=== PATIENT | female | born 1995 | race Caucasian/White ===

== ENCOUNTER 2019-08-30 23:39 | Emergency (ER) | payer OTHER ==
[2019-08-31 00:45] VITALS: BP 112/66; PULSE 78; TEMP 98.1; BMI 43.4
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
[2019-08-31] MEDS ORDERED: KETOROLAC TROMETHAMINE 30 MG/1 ML VIAL IM ONE (02:53)
[2019-08-31] MEDS ORDERED: KETOROLAC TROMETHAMINE 30 MG/1 ML VIAL ONE (03:01)
== END 2019-08-31 03:34 | disposition home or self-care (01) ==
LOC: JER 23:39
PROC: 3E0233Z Introduction of Anti-inflammatory into Muscle, Percutaneous Approach (ICD-10-PCS; principal; 2019-08-30)
DX: M54.5 Low back pain (principal); M54.2 Cervicalgia; V44.5XXA Car driver injured in collision with heavy transport vehicle or bus in traffic accident, initial encounter; Y92.414 Local residential or business street as the place of occurrence of the external cause; Y93.89 Activity, other specified; Y99.8 Other external cause status
CPT/HCPCS: 72050-TC-FY; 84703; 99282-25

== ENCOUNTER 2019-10-07 17:18 | Emergency (ER) | payer OTHER ==
[2019-10-07 17:26] VITALS: BMI 44.7
--- NOTE | 2019-10-07 20:40 | PDOC ---
History of Present Illness - General Chief Complaint: Cold Symptoms Stated Complaint: FLU SYMPTOMS Time Seen by Provider: 10/07/19 20:40 History Source: Patient - History of Present Illness Initial Comments: 10/07/19 20:49 Chief complaint: Fever and cough Patient 24-year-old healthy female with 3 days of fever and cough, last took Tylenol at 10 AM. GENERAL/CONSTITUTIONAL: No fever, weakness. dizziness HEAD, EYES, EARS, NOSE AND THROAT: No change in vision. No ear pain or discharge. No sore throat. CARDIOVASCULAR: No chest pain RESPIRATORY: No shortness of breath, + cough GASTROINTESTINAL: No pain, nausea, vomiting, diarrhea or constipation GENITOURINARY: No dysuria MUSCULOSKELETAL: No neck or back pain SKIN: No rash NEUROLOGIC: No headache, vertigo, loss of consciousness, or loss of sensation. GENERAL: The patient is awake, alert, and fully oriented, in no acute distress. HEAD: Normal with no signs of trauma. EYES: Pupils equal, round and reactive to light, sclera anicteric, conjunctiva clear. ENT: pharynx: no erythema, no exudate, uvula midline NECK: supple CHEST: Inspiration clear, wheezing with expiration, no signs of respiratory distress, nontender, rr ABD: soft, nontender BACK: no tenderness or signs of injury EXTREMITIES: Normal range of motion, no edema. NEUROLOGICAL: Normal speech, normal gait. SKIN: Warm, Dry Past History - Past Medical History Allergies/Adverse Reactions: Allergies Allergy/AdvReac Type Severity Reaction Status Date / Time No Known Allergies Allergy Verified 10/07/19 17:26 Home Medications: Ambulatory Orders Albuterol Sulfate Inhaler - [Ventolin HFA Inhaler -] 2 inh PO Q4H #1 inh Oseltamivir Phosphate [Tamiflu] 75 mg PO BID #10 capsule 10/07/19 predniSONE [Deltasone -] 40 mg PO DAILY #8 tablet 10/07/19 COPD: No - Psycho Social/Smoking Cessation Hx Smoking History: Never smoked *Physical Exam - Vital Signs Last Vital Signs Temp Pulse Resp BP Pulse Ox 102.7 F H 80 18 122/86 98 10/07/19 17:23 10/07/19 17:23 10/07/19 17:23 10/07/19 17:23 10/07/19 17:23 Medical Decision Making - Medical Decision Making 10/07/19 20:50 Healthy 24-year-old female with flu symptoms for 3 days, now with wheezing, no signs of respiratory distress. Patient will get Tylenol, flu swab DuoNeb and add in zone. Patient is not hypoxic. 10/07/19 22:08 Patient's wheezing has improved, no respiratory distress, patient's results are positive for flu A. Will sent home with Tamiflu, albuterol and prednisone. Patient will return if getting worse instead of better. Discussed issues, findings, results, applicable medications and treatments and follow-up. All these were understood and all questions were answered Discharge - Discharge Information Problems reviewed: Yes Clinical Impression/Diagnosis: Influenza A Condition: Stable Disposition: HOME - Admission No - Additional Discharge Information Prescriptions: Albuterol Sulfate Inhaler - [Ventolin HFA Inhaler -] 2 inh PO Q4H #1 inh Oseltamivir Phosphate [Tamiflu] 75 mg PO BID #10 capsule predniSONE [Deltasone -] 40 mg PO DAILY #8 tablet - Follow up/Referral - Patient Discharge Instructions Patient Printed Discharge Instructions: DI for Influenza -- Adult Additional Instructions: Drink 2-3 L of water daily Take Tylenol 650 mg every 4 hours or Motrin 600 mg every 6 hours for fever and pain Take the Tamiflu, 1 tablet every 12 hours for 5 days, this is for the flu. Use the albuterol inhaler 2 puffs every 4 hours as needed for wheezing Starting tomorrow take the prednisone 40 mg once daily for 4 days Return to the nearest ER if short of breath, unable to swallow, vomiting or feeling sicker Followup with your doctor in one to 2 days - Post Discharge Activity
[2019-10-07] MEDS ORDERED: predniSONE 20 MG TABLET (UD) PO ONE (20:45)
[2019-10-07] MEDS ORDERED: ALBUTEROL SO4 2.5/IPRATROPIUM 0.5 INH SOL 3 ML VIAL.NEB. NEB ONE ×2 (20:45→20:56)
[2019-10-07] MEDS ORDERED: ACETAMINOPHEN 325 MG TABLET (FP) PO ONE (20:51)
[2019-10-07] MEDS ORDERED: predniSONE 20 MG TABLET (UD) ONE (20:56)
[2019-10-07] MEDS ORDERED: ACETAMINOPHEN 325 MG TABLET (FP) ONE (20:56)
[2019-10-07 22:20] VITALS: BP 118/80; PULSE 76; TEMP 101.2
== END 2019-10-07 22:26 | disposition home or self-care (01) ==
LOC: MERGE 17:18 → JERFT 17:18
PROC: 3E0F7GC Introduction of Other Therapeutic Substance into Respiratory Tract, Via Natural or Artificial Opening (ICD-10-PCS; principal; 2019-10-07)
DX: J09.X2 Influenza due to identified novel influenza A virus with other respiratory manifestations (principal)
CPT/HCPCS: 87804; 94640; 99281-25

== ENCOUNTER 2020-10-01 11:13 | Emergency (ER) | payer OTHER ==
[2020-10-01 11:37] VITALS: BP 133/65; PULSE 69; TEMP 98.2; BMI 43.8
[2020-10-01] MEDS ORDERED: SODIUM CHLORIDE 1,000 ML IV STA (12:11)
[2020-10-01] MEDS ORDERED: ONDANSETRON 4 MG/2 ML VIAL IVPUSH ONE (12:11)
[2020-10-01] MEDS ORDERED: ONDANSETRON 4 MG/2 ML VIAL ONE (12:26)
[2020-10-01 13:06] LABS: BASO % 0.4 % (0-2.0); EOS % 0.1 % (0-4.5); HEMATOCRIT 36.5 % (32.4-45.2); HEMOGLOBIN 12.4 GM/dL (10.7-15.3); LYMPH % 21.6 % (8-40); MCH 29.4 pg (25.7-33.7); MEAN CELL VOLUME 86.5 fl (80-96); MEAN PLT VOLUME 7.3 fl (7.5-11.1); MONO % 4.1 % (3.8-10.2); NEUT % 73.8 % (42.8-82.8); PLATELET COUNT 423 K/MM3 (134-434); RBC 4.22 M/mm3 (3.60-5.2); RDW 13.5 % (11.6-15.6); WHITE BLOOD COUNT 8.7 K/mm3 (4.0-10.0)
[2020-10-01 13:28] LABS: ALBUMIN 3.8 g/dl (3.4-5.0); BLOOD UREA NITROGEN 8.8 mg/dL (7-18); CALCIUM 9.4 mg/dL (8.5-10.1)
[2020-10-01 13:31] LABS: CREATININE 0.5 mg/dL (0.55-1.3)
[2020-10-01 13:32] LABS: HCG,QUALITATIVE URINE Negative
[2020-10-01 13:33] LABS: BILIRUBIN,TOTAL 0.3 mg/dL (0.2-1); TOT PROT 7.6 g/dl (6.4-8.2)
[2020-10-01 13:34] LABS: EPI CELLS 11 /uL (0-25.1); HYALINE CASTS 6 /uL (0-3.1); URINE APPEARANCE CLOUDY; URINE BACTERIA 2572 /uL (0-1359); URINE BILIRUBIN NEGATIVE (NEGATIVE); URINE COLOR YELLOW; URINE GLUCOSE (UA) NEGATIVE (NEGATIVE); URINE KETONE NEGATIVE (NEGATIVE); URINE LEUK ESTERASE 2+ (NEGATIVE); URINE NITRITE NEGATIVE (NEGATIVE); URINE PROTEIN NEGATIVE (NEGATIVE); URINE RBC 49 /uL (0-23.9); URINE WBC 254 /uL (0-25.8)
== END 2020-10-01 14:05 | disposition home or self-care (01) ==
LOC: JERFT 11:13
PROC: 3E0337Z Introduction of Electrolytic and Water Balance Substance into Peripheral Vein, Percutaneous Approach (ICD-10-PCS; principal; 2020-10-01)
PROC: 3E033GC Introduction of Other Therapeutic Substance into Peripheral Vein, Percutaneous Approach (ICD-10-PCS; principal; 2020-10-01)
DX: N30.90 Cystitis, unspecified without hematuria (principal)
CPT/HCPCS: 36415; 80053; 81003; 83690; 84703; 85025; 87086; 99284-25

== ENCOUNTER 2022-11-17 10:51 | Emergency (ER) | payer OTHER ==
[2022-11-17 11:19] VITALS: BP 125/60; PULSE 62; RESP 20; TEMP 97.7; BMI 46.8
[2022-11-17] MEDS ORDERED: ACETAMINOPHEN 500 MG TABLET (FP) PO ONE (12:21)
[2022-11-17] MEDS ORDERED: ACETAMINOPHEN 500 MG TABLET (FP) ONE (12:29)
[2022-11-17 12:50] LABS: BASO % 0.8 % (0-2.0); EOS % 0.6 % (0-4.5); HEMATOCRIT 35.4 % (32.4-45.2); HEMOGLOBIN 12.1 GM/dL (10.7-15.3); LYMPH % 34.3 % (8-40); MCH 28.8 pg (25.7-33.7); MCHC 34.1 g/dl (32.0-36.0); MEAN CELL VOLUME 84.4 fl (80-96); MEAN PLT VOLUME 7.2 fl (7.5-11.1); MONO % 6.1 % (3.8-10.2); NEUT % 58.2 % (42.8-82.8); PLATELET COUNT 421 10^3/uL (134-434); RBC 4.19 M/mm3 (3.60-5.2); RDW 13.4 % (11.6-15.6)
[2022-11-17 13:17] LABS: ALBUMIN 3.6 g/dl (3.4-5.0); BLOOD UREA NITROGEN 15.9 mg/dL (7-18); CALCIUM 8.8 mg/dL (8.5-10.1); MAGNESIUM 2.1 mg/dL (1.8-2.4)
[2022-11-17 13:20] LABS: CREATININE 0.4 mg/dL (0.55-1.3)
[2022-11-17 13:22] LABS: BILIRUBIN,TOTAL 0.4 mg/dL (0.2-1); TOT PROT 7.2 g/dl (6.4-8.2)
== END 2022-11-17 15:22 | disposition home or self-care (01) ==
LOC: JER 10:51
DX: M25.512 Pain in left shoulder (principal); R07.9 Chest pain, unspecified
CPT/HCPCS: 36415; 71046-TC-FY; 73030-TC-LT-FY; 80053; 83735; 84484; 85025; 93005; 93010; 99285-25